=== PATIENT | male | born 1965 | race Two or more races ===

== ENCOUNTER 2017-11-15 06:55 | Day surgery (SDC) | payer OTHER ==
[~2017-11-15] VITALS: Ht 167.6 cm; Wt 98.0 kg
[2017-11-15 07:18] VITALS: BP 159/100
[2017-11-15 10:24] VITALS: BP 128/89
== END 2017-11-15 10:15 | disposition home or self-care (01) ==
LOC: DS 06:55 → GI 07:30 → OR 08:45 → GI 08:45 → OR 10:00 → DS 10:15
PROVIDERS: Internal Medicine Gastroenterology
PROC: 0DJD8ZZ Inspection of Lower Intestinal Tract, Via Natural or Artificial Opening Endoscopic (ICD-10-PCS; principal; 2017-11-15 07:30)
DX: Z12.11 Encounter for screening for malignant neoplasm of colon (principal); K64.8 Other hemorrhoids; K21.9 Gastro-esophageal reflux disease without esophagitis; N39.498 Other specified urinary incontinence; F17.210 Nicotine dependence, cigarettes, uncomplicated; Z68.35 Body mass index [BMI] 35.0-35.9, adult
CPT/HCPCS: 45378; J1200; J1610; J2250; J2310; J3010; J3490